=== PATIENT | female | born 1945 | race Caucasian/White ===

== ENCOUNTER 2016-09-02 21:27 | Emergency (ER) | payer MEDICARE, OTHER ==
[2016-09-02 21:34] VITALS: TEMP 96.8
--- NOTE | 2016-09-02 21:46 | ED ---
General Adult HPI - General Chief complaint: Chest Pain Stated complaint: SOB Time Seen by Provider: 09/02/16 21:35 Source: patient, RN notes reviewed, old records reviewed Mode of arrival: wheelchair Limitations: no limitations - History of Present Illness Initial comments: This is a 70-year-old female ER for evaluation. This patient presents today for evaluation of anxiety. Patient's been going through a lot of grief lately related to loss family loss. She does have history of heart disease. She became nauseous tonight will not was unable he didn't, headache left-sided pain pain rating to jaw and back. Patient has history of similar pain before with negative stress test negative cardiac testing. As the patient's pain is improved potential very anxious and nauseous - Related Data Allergies Allergy/AdvReac Type Severity Reaction Status Date / Time acetaminophen [From Vicodin] Allergy Unknown Verified 09/02/16 21:35 codeine Allergy Unknown Verified 09/02/16 21:35 hydrocodone [From Vicodin] Allergy Unknown Verified 09/02/16 21:35 iodine Allergy Unknown Verified 09/02/16 21:35 Review of Systems ROS Statement: Those systems with pertinent positive or pertinent negative responses have been documented in the HPI. ROS Other: All systems not noted in ROS Statement are negative. Past Medical History Past Medical History: Diabetes Mellitus, Hypertension History of Any Multi-Drug Resistant Organisms: None Reported Past Surgical History: Cholecystectomy, Hysterectomy, Orthopedic Surgery Additional Past Surgical History / Comment(s): eys- cataracts Past Psychological History: Anxiety Smoking Status: Never smoker Past Alcohol Use History: None Reported Past Drug Use History: None Reported General Exam Limitations: no limitations General appearance: alert, in no apparent distress, anxious Head exam: Present: atraumatic, normocephalic, normal inspection Eye exam: Present: normal appearance, PERRL, EOMI. Absent: scleral icterus, conjunctival injection, periorbital swelling ENT exam: Present: normal exam, mucous membranes moist Neck exam: Present: normal inspection. Absent: tenderness, meningismus, lymphadenopathy Respiratory exam: Present: normal lung sounds bilaterally. Absent: respiratory distress, wheezes, rales, rhonchi, stridor Cardiovascular Exam: Present: regular rate, normal rhythm, normal heart sounds. Absent: systolic murmur, diastolic murmur, rubs, gallop, clicks GI/Abdominal exam: Present: soft, normal bowel sounds. Absent: distended, tenderness, guarding, rebound, rigid Extremities exam: Present: normal inspection, full ROM, normal capillary refill. Absent: tenderness, pedal edema, joint swelling, calf tenderness Back exam: Present: normal inspection Neurological exam: Present: alert, oriented X3, CN II-XII intact Psychiatric exam: Present: normal affect, normal mood Skin exam: Present: warm, dry, intact, normal color. Absent: rash Course Vital Signs 09/02/16 21:29 Temperature 96.8 F L Pulse Rate 88 Respiratory 18 Rate Blood Pressure 199/88 O2 Sat by Pulse 97 Oximetry - Reevaluation(s) Reevaluation #1: 09/02/16 22:45 Patient's symptoms improved with anxiolysis Medical Decision Making - Medical Decision Making 70 female here for evaluation of anxiety and grief reaction. Patient's troponin and EKG are negative. Symptoms are improving patient can be discharged - Radiology Data Radiology results: report reviewed (Chest x-ray negative for acute disease), image reviewed Disposition Clinical Impression: Grief reaction Disposition: HOME SELF-CARE Condition: Good Instructions: Chest Pain (ED), Grief and Loss (ED) Referrals: Misael Brown MD [Primary Care Provider] - 1-2 days
[2016-09-02] MEDS ORDERED: SODIUM CHLORIDE 0.9% 500 ML IV STA (22:13)
[2016-09-02] MEDS ORDERED: MORPHINE SULFATE 4 MG/ML SYRINGE IV STA (22:13)
[2016-09-02] MEDS ORDERED: SODIUM CHLORIDE 0.9% 1,000 ML IV STA (22:13)
[2016-09-02] MEDS ORDERED: ONDANSETRON 4 MG/2 ML VIAL IVP STA (22:13)
[2016-09-02] MEDS ORDERED: PANTOPRAZOLE 40 MG/10 ML VIAL IVP STA (22:14)
[2016-09-02 23:08] LABS: Basophils # (A) 0.1 k/uL (0-0.2); Basophils % (A) 1 %; CH 30.3; CHCM 35.4; Eosinophils # (A) 0.1 k/uL (0-0.7); Eosinophils % (A) 2 %; HCT 38.9 % (34.0-46.0); HDW 2.96; HGB 13.5 gm/dL (11.4-16.0); Luc % (Auto) 2; Lymphocytes # (A) 1.2 k/uL (1.0-4.8); Lymphocytes % (A) 19 %; MCH 29.7 pg (25.0-35.0); MCHC 34.6 g/dL (31.0-37.0); MCV 85.9 fL (80.0-100.0); Mean Platelet Volume 7.4; Monocytes # (A) 0.3 k/uL (0-1.0); Monocytes % (A) 5 %; Neutrophils # (A) 4.5 k/uL (1.3-7.7); Neutrophils % (A) 71 %; RBC 4.53 m/uL (3.80-5.40); RDW 13.5 % (11.5-15.5); WBC 6.3 k/uL (3.8-10.6); WBC (Perox) 6.45
--- NOTE | 2016-09-02 23:10 | XR ---
EXAMINATION TYPE: XR chest 2V DATE OF EXAM: 09/02/2016 11:05 PM COMPARISON: NONE HISTORY: Chest pressure and weakness TECHNIQUE: Frontal and lateral views of the chest are obtained. FINDINGS: Heart and mediastinum are normal. Lungs are clear. Diaphragm is normal. Bony thorax is int act. There is no sign of pleural effusion. There are chest leads. IMPRESSION: No active cardiopulmonary disease.
[2016-09-02 23:16] LABS: ALT 37 U/L (9-52); AST 23 U/L (14-36); Alkaline Phosphatase 98 U/L (38-126); Anion Gap 11 mmol/L; Blood Urea Nitrogen 16 mg/dL (7-17); Calcium 9.4 mg/dL (8.4-10.2); Carbon Dioxide 26 mmol/L (22-30); Chloride 104 mmol/L (98-107); Glucose 211 mg/dL (74-99); Magnesium 2.1 mg/dL (1.6-2.3); Non-African American GFR(MDRD) >60 (>60 ml/min/1.73 sqM); Phosphorous 3.1 mg/dL (2.5-4.5); Sodium 141 mmol/L (137-145); Total Bilirubin 0.5 mg/dL (0.2-1.3)
[2016-09-02 23:22] LABS: Partial Thromboplastin Time 24.5 sec (22.0-30.0); Prothrombin Time 9.8 sec (9.0-12.0)
[2016-09-02 23:31] LABS: Creatine Kinase 75 U/L (30-135)
[2016-09-02 23:44] LABS: Creatine Kinase MB 1.4 ng/mL (0.0-2.4); Troponin I <0.012 ng/mL (0.000-0.034)
[2016-09-03 00:28] VITALS: BP 158/78; PULSE 77; RESP 16
== END 2016-09-03 00:28 | disposition home or self-care (01) ==
LOC: EC 21:27
DX: F43.22 Adjustment disorder with anxiety (principal); Z88.5 Allergy status to narcotic agent; Z88.8 Allergy status to other drugs, medicaments and biological substances; Z91.048 Other nonmedicinal substance allergy status
CPT/HCPCS: 99285 ×2; 96374 ×2; 96375 ×3; 96361 ×3; 36415; 80053; 82550; 82553; 83690; 83735; 84100; 84484; 85025; 85610; 85730; 71020; J2270; J2405; C9113

== ENCOUNTER → 2016-09-26 | Outpatient (CLI) | payer MEDICARE, OTHER ==
[2016-09-26 09:45] LABS: CH 30.3; CHCM 33.8; HCT 39.9 % (34.0-46.0); HDW 2.83; HGB 13.7 gm/dL (11.4-16.0); MCHC 34.4 g/dL (31.0-37.0); MCV 89.9 fL (80.0-100.0); Mean Platelet Volume 8.1; RBC 4.44 m/uL (3.80-5.40); RDW 13.6 % (11.5-15.5); WBC 6.5 k/uL (3.8-10.6)
[2016-09-26 10:13] LABS: Anion Gap 11 mmol/L; Blood Urea Nitrogen 15 mg/dL (7-17); Carbon Dioxide 30 mmol/L (22-30); Chloride 99 mmol/L (98-107); Non-African American GFR(MDRD) >60 (>60 ml/min/1.73 sqM); Potassium 4.8 mmol/L (3.5-5.1); Sodium 140 mmol/L (137-145)
== END | disposition home or self-care (01) ==
LOC: LABPAT 09:24
PROVIDERS: ATTEND Internal Medicine Interventional Cardiology
DX: Z01.812 Encounter for preprocedural laboratory examination (principal); I25.10 Atherosclerotic heart disease of native coronary artery without angina pectoris
CPT/HCPCS: 80051; 82565; 84520; 85027

== ENCOUNTER 2016-10-04 06:11 | Day surgery (SDC) | payer MEDICARE, OTHER ==
[2016-10-03 12:28] VITALS: BMI 36.0
[~2016-10-04 06:11] MED LIST: ALPRAZolam 0.25 MG TAB PO PRN; ALPRAZolam 0.5 MG TAB PO PRN; ASPIRIN 325 MG TAB PO STA; ATORVASTATIN 80 MG TAB PO STA; NITROGLYCERIN SL TABS 0.4 MG TAB SUBLINGUAL PRN; SODIUM CHLORIDE 0.9% 1,000 ML in EMPTY BAG 1 BAG IV ONE
[2016-10-04 06:50] VITALS: RESP 18
[2016-10-04 06:59] LABS: Glucose,Whole Blood 338 mg/dL (75-99)
[2016-10-04] MEDS ORDERED: INSULIN LISPRO (humaLOG) 300 UNIT/3 ML VIAL SQ SCH (07:30)
[2016-10-04] MEDS ORDERED: diphenhydrAMINE 50 MG/ML 1 ML VIAL IVP ONE (07:49)
[2016-10-04] MEDS: MIDAZOLAM 2 MG/2 ML VIAL IVP ONE ×2 (07:49→08:27)
[2016-10-04] MEDS ORDERED: LIDOCAINE 2% INJ 20 MG/ML SQ ONE (08:28)
[2016-10-04] MEDS ORDERED: VERAPAMIL SYRINGE (5 MG/10 ML) INTRAARTER ONE ×2 (08:32→08:40)
[2016-10-04] MEDS ORDERED: HYDROmorphone 2 MG/ML 1 ML SYRINGE IVP ONE (08:35)
[2016-10-04] MEDS ORDERED: HEPARIN SODIUM 1,000 UNIT/ML VIAL IV ONE (08:35)
[2016-10-04] MEDS ORDERED: ONDANSETRON 4 MG/2 ML VIAL IVP ONE (08:40)
[2016-10-04] MEDS ORDERED: IOHEXOL 350 MG/ML 100 ML BOTTLE INJ ONE (08:44)
[2016-10-04] MEDS ORDERED: RX INFO: IV CONTRAST WAS GIVEN 1 EACH MISC MISCELLANE PRN (08:47)
[2016-10-04 08:57] LABS: Glucose,Whole Blood 289 mg/dL (75-99)
[2016-10-04] MEDS ORDERED: SODIUM CHLORIDE 0.9% 1,000 ML IV SCH (09:00)
--- NOTE | 2016-10-04 09:49 | CC ---
DATE OF SERVICE: 10/04/2016 PERFORMING PHYSICIAN: Liz London, Dental Scheduling Coordinator. PROCEDURE PERFORMED: Selective right and left coronary angiogram. INDICATION: This is a pleasant 70-year-old female patient who continues to have intermittent episodes of chest discomfort in spite of maximized medical treatment. APPROACH: Right radial artery. COMPLICATIONS: None. LEVEL OF SEDATION: Moderate with a length of sedation of about 15 minutes. PROCEDURE DESCRIPTION: After obtaining an informed consent, the patient was brought to the Cardiac Animal Husbandry Technician. The right radial artery was cannulated using micropuncture technique. The micropuncture wire passed easily. Then I placed 6 Jordanian sheath in the right radial artery. Subsequently, I did give the patient 5000 units of heparin IV and 2 mg of Verapamil IA. Subsequently, I did selective right and left coronary angiogram using JR4 and JL 3.5 catheters. The procedure was completed without any complication. SELECTIVE CORONARY ANGIOGRAM: 1. The right coronary artery is a large-caliber vessel, it is a dominant vessel, and it is angiographically normal. In the midportion, it gives rise into a small acute marginal branch and distally bifurcates into PDA and PLV branches and both are angiographically normal. 2. The left main is angiographically normal. It bifurcates into the left circumflex and left anterior descending artery. 3. The left circumflex is a large-caliber vessel and it is a nondominant vessel. The proximal left circumflex is normal and gives rises into the first OM branch, which is a medium caliber vessel, seems to be angiographically normal. The mid left circumflex is normal and gives rise into second OM branch, which is a large-caliber vessel, seems to be angiographically normally. The left circumflex continues after that as a small to medium caliber vessel in the AV groove. 4. The left anterior descending artery. The proximal left anterior descending artery is normal and gives rises into the first diagonal branch, which appeared to be angiographically normal. The mid LAD is normal as well and gives rise into the second diagonal branch, which seems to be angiographically normal with the LAD distally becomes tortuous, but normal angiographically. CONCLUSION: 1. Normal coronary angiogram. 2. Dominant right coronary system. POSTPROCEDURE MANAGEMENT: 1. Maximize medical treatment. 2. Follow up with the patient.
--- NOTE | 2016-10-04 09:55 | LTR ---
October 04, 2016 RE: Mauro Rika Zoe Dear Misael; Ms. Rika Wade underwent a heart catheterization which showed normal coronary angiogram. Thank you for allowing me to participate in her care and please do not hesitate to call if you have any question or concerns. Sincerely, BARI OSUNA MD
[2016-10-04 12:24] LABS: Glucose,Whole Blood 450 mg/dL (75-99)
[2016-10-04] MEDS ORDERED: INSULIN LISPRO (humaLOG) 300 UNIT/3 ML VIAL SQ ONE ×5 (12:34→17:45)
[2016-10-04] MEDS ORDERED: INSULIN DETEMIR 100 UNIT/ML 10 ML VIAL SQ SCH (13:00)
[2016-10-04] MEDS ORDERED: SODIUM CHLORIDE 0.9% 1,000 ML IV ONE (13:00)
[2016-10-04 15:28] LABS: Glucose,Whole Blood 484 mg/dL (75-99)
[2016-10-04 16:20] LABS: Glucose,Whole Blood 402 mg/dL (75-99)
[2016-10-04 16:51] LABS: Glucose,Whole Blood 316 mg/dL (75-99)
[2016-10-04 17:04] VITALS: BP 166/72; PULSE 86; TEMP 98
== END 2016-10-04 17:55 | disposition home or self-care (01) ==
LOC: CATHCVL 06:11
PROVIDERS: ATTEND Internal Medicine Interventional Cardiology
DX: R07.89 Other chest pain (principal); I10 Essential (primary) hypertension; E78.5 Hyperlipidemia, unspecified; E66.3 Overweight; Z68.35 Body mass index [BMI] 35.0-35.9, adult; E11.9 Type 2 diabetes mellitus without complications; Z79.4 Long term (current) use of insulin; I47.1 Supraventricular tachycardia; Z79.82 Long term (current) use of aspirin; Z79.899 Other long term (current) drug therapy; Z88.6 Allergy status to analgesic agent; Z88.5 Allergy status to narcotic agent; Z91.09 Other allergy status, other than to drugs and biological substances
CPT/HCPCS: 93454; 99152; 99153 ×3; C1894; J2001; J2250; J1170; J1200; Q9967; J2405; J1644

== ENCOUNTER 2016-10-06 16:06 | Emergency (ER) | payer MEDICARE, OTHER ==
[2016-10-06] MEDS ORDERED: DIAZEPAM 5 MG TAB PO STA (17:04)
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
--- NOTE | 2016-10-06 17:51 | XR ---
EXAMINATION TYPE: XR knee complete LT DATE OF EXAM: 10/06/2016 5:47 PM CLINICAL HISTORY: pain TECHNIQUE: Three views of the left knee are obtained. COMPARISON: None. FINDINGS: There is no acute fracture/dislocation. The tri-compartment joint spaces appear mildly na rrowed. The overlying soft tissue appears unremarkable. IMPRESSION: There is no acute fracture or dislocation ICD 10 NO FRACTURE, INITIAL EVALUATION
[2016-10-06 18:19] VITALS: BP 153/72; PULSE 80; RESP 18; TEMP 99.2
== END 2016-10-06 18:18 | disposition home or self-care (01) ==
LOC: EC 16:06
DX: S80.02XA Contusion of left knee, initial encounter (principal); V49.49XA Driver injured in collision with other motor vehicles in traffic accident, initial encounter; F41.9 Anxiety disorder, unspecified; R51 Headache; I10 Essential (primary) hypertension; E11.9 Type 2 diabetes mellitus without complications; Z79.4 Long term (current) use of insulin; Z79.899 Other long term (current) drug therapy; Z79.82 Long term (current) use of aspirin; Z91.013 Allergy to seafood; Z91.041 Radiographic dye allergy status; Z88.5 Allergy status to narcotic agent
CPT/HCPCS: 70450; 99284

== ENCOUNTER → 2017-01-04 | Outpatient (CLI) | payer MEDICARE, OTHER ==
[2017-01-04 11:07] LABS: ALT 39 U/L (9-52); AST 33 U/L (14-36); Alkaline Phosphatase 61 U/L (38-126); Anion Gap 8 mmol/L; Blood Urea Nitrogen 24 mg/dL (7-17); Calcium 9.6 mg/dL (8.4-10.2); Carbon Dioxide 29 mmol/L (22-30); Chloride 103 mmol/L (98-107); Cholesterol 134 mg/dL (<200); Glucose 126 mg/dL (74-99); HDL Cholesterol 62 mg/dL (40-60); Non-African American GFR(MDRD) >60 (>60 ml/min/1.73 sqM); Potassium 4.7 mmol/L (3.5-5.1); Sodium 140 mmol/L (137-145); Total Bilirubin 0.8 mg/dL (0.2-1.3); Total Protein 7.1 g/dL (6.3-8.2); Triglycerides 88 mg/dL (<150)
== END ==
LOC: LABWHC1 09:53
PROVIDERS: ATTEND Internal Medicine Endocrinology, Diabetes & Metabolism
DX: E11.65 Type 2 diabetes mellitus with hyperglycemia (principal)
CPT/HCPCS: 36415; 80053; 80061; 82043; 83036

== ENCOUNTER 2017-08-28 20:36 | Inpatient (IN) | payer MEDICARE, OTHER ==
--- NOTE | 2017-08-28 21:10 | ED ---
Chest Pain HPI - General Chief Complaint: Chest Pain Stated Complaint: CHEST PAIN Time Seen by Provider: 08/28/17 20:37 Source: patient, EMS Mode of arrival: EMS Limitations: no limitations - History of Present Illness MD Complaint: chest pain Onset/Timin -: minutes(s) Onset: during rest Pain Location: left chest Pain Radiation: LUE Severity: moderate Quality: heaviness Consistency: constant, now resolved Improves With: nothing Worsens With: nothing Anginal Symptoms: diaphoresis Treatments Prior to Arrival: aspirin, nitroglycerin, oxygen - Related Data Home Medications Medication Instructions Recorded Confirmed Aspirin 81 mg PO DAILY 10/03/16 08/28/17 Cholecalciferol [Vitamin D3] 5,000 unit PO DAILY 10/03/16 08/28/17 Furosemide [Lasix] 40 mg PO DAILY 10/03/16 08/28/17 Lisinopril [Zestril] 20 mg PO BID 10/03/16 08/28/17 Metoprolol Tartrate [Lopressor] 25 mg PO BID 10/03/16 08/28/17 Omeprazole [PriLOSEC] 20 mg PO AC-BID 10/03/16 08/28/17 Simvastatin [Zocor] 20 mg PO HS 10/03/16 08/28/17 Glimepiride [Amaryl] 2 mg PO DAILY 08/28/17 08/28/17 Ibuprofen [Motrin] 800 mg PO TID PRN 08/28/17 08/28/17 Latanoprost [Xalatan 0.005%] 1 drop BOTH EYES HS 08/28/17 08/28/17 Pioglitazone [Actos] 30 mg PO DAILY 08/28/17 08/28/17 amLODIPine [Norvasc] 5 mg PO DAILY 08/28/17 08/28/17 metFORMIN HCL 1,000 mg PO BID 08/28/17 08/28/17 Allergies Allergy/AdvReac Type Severity Reaction Status Date / Time codeine Allergy Nausea & Verified 08/28/17 21:09 Vomiting hydrocodone [From Vicodin] Allergy nausea,inso Verified 08/28/17 21:09 mnia Iodinated Contrast- Oral and Allergy Dyspnea,hiv Verified 08/28/17 21:09 IV Dye es [Iodinated Contrast Media - Oral and] shellfish derived [Shellfish] Allergy Rash/Hives Verified 08/28/17 21:09 Review of Systems ROS Statement: Those systems with pertinent positive or pertinent negative responses have been documented in the HPI. ROS Other: All systems not noted in ROS Statement are negative. Constitutional: Denies: fever, chills, weakness Respiratory: Reports: dyspnea. Denies: cough, wheezes, hemoptysis Cardiovascular: Reports: chest pain, palpitations. Denies: dyspnea on exertion , orthopnea, edema, syncope Gastrointestinal: Denies: abdominal pain, nausea, vomiting Genitourinary: Denies: dysuria, hematuria Musculoskeletal: Reports: back pain (chronic), arthralgia (chronic left knee pain) Skin: Denies: rash Neurological: Denies: headache, weakness, numbness Psychiatric: Reports: anxiety Hematological/Lymphatic: Denies: easy bleeding EKG Findings - EKG Comments: EKG Findings:: comparison with EKG from 09/02/2016 is unchanged. - EKG Results: EKG: interpreted by ERMD, sinus rhythm, normal axis, normal ST/T EKG shows: tachycardia (rate 106 bpm) - CA, Pacemaker, Normal: Myocardial infarction: inferior CA (old age indeterminate) (there are Q waves in leads 1 and aVL suggestive of possible old inferior infarct.) Past Medical History Past Medical History: Diabetes Mellitus, Hypertension History of Any Multi-Drug Resistant Organisms: None Reported Past Surgical History: Cholecystectomy, Hysterectomy, Orthopedic Surgery Additional Past Surgical History / Comment(s): eys- cataracts Past Psychological History: Anxiety Smoking Status: Never smoker Past Alcohol Use History: None Reported Past Drug Use History: None Reported General Exam Limitations: no limitations General appearance: alert, in no apparent distress, obese Head exam: Present: atraumatic, normocephalic Eye exam: Present: normal appearance. Absent: scleral icterus, conjunctival injection ENT exam: Present: normal oropharynx Neck exam: Present: normal inspection Respiratory exam: Present: normal lung sounds bilaterally. Absent: respiratory distress, wheezes, rales, rhonchi, stridor, chest wall tenderness Cardiovascular Exam: Present: regular rate (rate is 96 at my exam), normal heart sounds. Absent: normal rhythm, systolic murmur, diastolic murmur, rubs, gallop GI/Abdominal exam: Present: soft. Absent: distended, tenderness, guarding, rebound, mass, pulsatile mass, hernia Extremities exam: Present: normal inspection, normal capillary refill. Absent: pedal edema, calf tenderness Back exam: Present: normal inspection. Absent: CVA tenderness (R), CVA tenderness (L) Neurological exam: Present: alert Psychiatric exam: Present: normal affect Skin exam: Present: warm, dry, intact, normal color. Absent: rash Course Vital Signs 08/28/17 20:44 Temperature 97.9 F Pulse Rate 107 H Respiratory 16 Rate Blood Pressure 165/70 O2 Sat by Pulse 99 Oximetry Disposition Clinical Impression: Chest pain, Hypomagnesemia Disposition: ADMITTED IP TO THIS HOSP Condition: Good Instructions: Chest Pain (ED) Referrals: Misael Brown MD [Primary Care Provider] - 1-2 days
[2017-08-28 21:43] LABS: Basophils # (A) 0.1 k/uL (0-0.2); Basophils % (A) 1 %; Eosinophils # (A) 0.1 k/uL (0-0.7); Eosinophils % (A) 2 %; HCT 34.3 % (34.0-46.0); HGB 11.6 gm/dL (11.4-16.0); Lymphocytes # (A) 1.5 k/uL (1.0-4.8); Lymphocytes % (A) 28 %; MCH 30.8 pg (25.0-35.0); MCV 90.6 fL (80.0-100.0); Monocytes # (A) 0.3 k/uL (0-1.0); Monocytes % (A) 6 %; Neutrophils # (A) 3.3 k/uL (1.3-7.7); Neutrophils % (A) 62 %; Platelet Count 203 k/uL (150-450); RBC 3.78 m/uL (3.80-5.40); RDW 14.7 % (11.5-15.5); WBC 5.4 k/uL (3.8-10.6)
[2017-08-28 21:51] LABS: Partial Thromboplastin Time 23.8 sec (22.0-30.0); Prothrombin Time 10.2 sec (9.0-12.0)
[2017-08-28 21:52] LABS: ALT 27 U/L (9-52); AST 18 U/L (14-36); Albumin 3.8 g/dL (3.5-5.0); Alkaline Phosphatase 59 U/L (38-126); Amylase 42 U/L (30-110); Anion Gap 11 mmol/L; Blood Urea Nitrogen 19 mg/dL (7-17); Calcium 9.4 mg/dL (8.4-10.2); Carbon Dioxide 26 mmol/L (22-30); Chloride 101 mmol/L (98-107); Glucose 219 mg/dL (74-99); Lipase 66 U/L (23-300); Potassium 3.7 mmol/L (3.5-5.1); Sodium 138 mmol/L (137-145); Total Bilirubin 0.3 mg/dL (0.2-1.3); Total Protein 6.2 g/dL (6.3-8.2)
[2017-08-28 21:56] LABS: Magnesium 0.9 mg/dL (1.6-2.3)
--- NOTE | 2017-08-28 21:57 | XR ---
EXAMINATION: XR chest 1V portable DATE AND TIME: 08/28/2017 9:53 PM ORDERING PROVIDER: Ike Carlisle MD CLINICAL INDICATION: chest pain TECHNIQUE: AP upright portable COMPARISON: None. DESCRIPTION: The lungs are clear. The pleural spaces are negative. The cardiac silhouette is not enla rged. The mediastinal and pleural silhouettes are unremarkable. The skeletal structures are intact without focal findings. The soft tissues are unremarkable. IMPRESSION: NO ACUTE PROCESS.
[2017-08-28 22:03] LABS: Creatine Kinase 64 U/L (30-135)
[2017-08-28 22:16] LABS: Creatine Kinase MB 0.9 ng/mL (0.0-2.4); Troponin I <0.012 ng/mL (0.000-0.034)
[2017-08-28] MEDS: MAGNESIUM SULFATE-D5W PMX 1 GM in DEXTROSE/WATER 1 100ML.BAG IVPB SCH ×2 (22:33→23:37)
[2017-08-28] MEDS ORDERED: NITROGLYCERIN SL TABS 0.4 MG TAB SUBLINGUAL PRN (22:49)
[2017-08-28] MEDS ORDERED: IBUPROFEN 800 MG TAB PO PRN (22:52)
[2017-08-29 02:26] VITALS: BMI 35.8
[2017-08-29 04:01] LABS: Magnesium 1.7 mg/dL (1.6-2.3)
[2017-08-29 04:13] LABS: Creatine Kinase 62 U/L (30-135)
[2017-08-29 04:26] LABS: Creatine Kinase MB 0.7 ng/mL (0.0-2.4); Troponin I <0.012 ng/mL (0.000-0.034)
[2017-08-29 06:29] LABS: Glucose,Whole Blood 123 mg/dL (75-99)
[2017-08-29] MEDS: metFORMIN 500 MG TAB PO SCH ×2 (06:31→17:21)
[2017-08-29] MEDS: PANTOPRAZOLE 40 MG TABLET PO SCH ×2 (06:31→15:44)
[2017-08-29 08:24] VITALS: RESP 16
[2017-08-29] MEDS: ASPIRIN 325 MG TAB PO SCH (08:27)
[2017-08-29] MEDS: MAGNESIUM OXIDE 400 MG TAB PO SCH ×2 (08:27→20:35)
[2017-08-29] MEDS: GLIMEPIRIDE 2 MG TAB PO SCH ×2 (08:27→08:30)
--- NOTE | 2017-08-29 08:31 | P.CRDCN ---
History of Present Illness Consult date: 08/29/17 Requesting physician: Romaine Almanzar Consult reason: chest pain Chief complaint: Chest PAin and palpitations History of present illness: This is a 71-year-old female with history of diabetes, hypertension, hyperlipidemia, family history of coronary artery disease, history of SVT, most recently had a cardiac catheterization performed in September of last year which revealed normal coronary arteries. She follows with Dr. Benavides in the office. Patient presents to the hospital with symptoms of chest discomfort with associated palpitations, and elevated blood sugars. She also states that she checked her blood pressure at home which was noted to be quite elevated at that time. According to the patient, she is under a considerable amount of stress at home, and has been feeling quite anxious. At the time of my examination this morning she denies any chest discomfort, she just states that she feels cold and feels very anxious. EKG on arrival here shows a sinus tachycardia with Q waves noted in the lateral leads. Chest x-ray did not reveal any acute process. Blood pressure on arrival here 164/70, heart rate 110, 99% on room air. Blood pressure this morning 166/70, heart rate 108-110, 98% on room air. Laboratory data was reviewed, CBC is normal, sodium 138, potassium 3.7, BUN 19, creatinine 1.02. Magnesium level on admission 0.9, 1.7 this morning. Troponins 2 are negative. Past Medical History Past Medical History: Diabetes Mellitus, Hypertension, Myocardial Infarction (VT ) Last Myocardial Infarction Date:: 1986 History of Any Multi-Drug Resistant Organisms: None Reported Past Surgical History: Cholecystectomy, Heart Catheterization, Hysterectomy, Orthopedic Surgery Additional Past Surgical History / Comment(s): eys- cataracts Past Psychological History: Anxiety Smoking Status: Never smoker Past Alcohol Use History: None Reported Past Drug Use History: None Reported - Past Family History Father Family Medical History: CVA/TIA, Diabetes Mellitus Mother Family Medical History: Congestive Heart Failure (CHF), Diabetes Mellitus Medications and Allergies Home Medications Medication Instructions Recorded Confirmed Type Aspirin 81 mg PO DAILY 10/03/16 08/28/17 History Cholecalciferol [Vitamin D3] 5,000 unit PO DAILY 10/03/16 08/28/17 History Furosemide [Lasix] 40 mg PO DAILY 10/03/16 08/28/17 History Lisinopril [Zestril] 20 mg PO BID 10/03/16 08/28/17 History Metoprolol Tartrate [Lopressor] 25 mg PO BID 10/03/16 08/28/17 History Omeprazole [PriLOSEC] 20 mg PO AC-BID 10/03/16 08/28/17 History Simvastatin [Zocor] 20 mg PO HS 10/03/16 08/28/17 History Glimepiride [Amaryl] 1 mg PO DAILY 08/28/17 08/29/17 History Ibuprofen [Motrin] 800 mg PO TID PRN 08/28/17 08/28/17 History Latanoprost [Xalatan 0.005%] 1 drop BOTH EYES HS 08/28/17 08/28/17 History Pioglitazone [Actos] 30 mg PO DAILY 08/28/17 08/28/17 History amLODIPine [Norvasc] 5 mg PO DAILY 08/28/17 08/28/17 History metFORMIN HCL 1,000 mg PO BID 08/28/17 08/28/17 History Allergies Allergy/AdvReac Type Severity Reaction Status Date / Time codeine Allergy Nausea & Verified 08/28/17 21:09 Vomiting hydrocodone [From Vicodin] Allergy nausea,inso Verified 08/28/17 21:09 mnia Iodinated Contrast- Oral and Allergy Dyspnea,hiv Verified 08/28/17 21:09 IV Dye es [Iodinated Contrast Media - Oral and] shellfish derived [Shellfish] Allergy Rash/Hives Verified 08/28/17 21:09 Physical Exam Vitals: Vital Signs Temp Pulse Pulse Resp BP BP Pulse Ox 08/29/17 03:52 83 17 147/65 96 08/29/17 02:01 97.5 F L 110 H 17 161/73 98 08/28/17 23:55 98.1 F 96 16 145/66 96 08/28/17 22:50 98 18 142/66 97 08/28/17 21:50 100 16 146/67 98 08/28/17 20:44 97.9 F 107 H 16 165/70 99 Intake and Output 08/28/17 08/29/17 08/29/17 22:59 06:59 14:59 Intake Total 680 200 Balance 680 200 Intake: Intake, IV Titration 200 Amount Magnesium Sulfate-D5w Pmx 200 1 gm In Dextrose/Water 1 100ml.bag @ 100 mls/hr IVPB Q1H [facility] Rx#: [id number] Oral 480 200 Other: Voiding Method Toilet # Voids 2 Weight 97.069 kg 94.6 kg PHYSICAL EXAMINATION: HEENT: Head is atraumatic, normocephalic. Pupils equal, round. Neck is supple. There is no elevated jugular venous pressure. HEART EXAMINATION: Heart S1, S2 tachycardiac . No murmur or gallop heard. CHEST EXAMINATION: Lungs are clear to auscultation and precussion. No chest wall tenderness is noted on palpation or with deep breathing. ABDOMEN: Soft, nontender. Bowel sounds are heard. No organomegaly noted. EXTREMITIES: 2+ peripheral pulses with no evidence of peripheral edema and no calf tenderness noted. NEUROLOGIC patient is awake, alert and oriented -3. . Results 08/28/17 20:50 08/28/17 20:50 Cardiac Enzymes 08/28/17 08/28/17 08/29/17 Range/Units 20:50 20:50 03:08 AST 18 (14-36) U/L CK-MB (CK-2) 0.9 0.7 (0.0-2.4) ng/mL Troponin I <0.012 <0.012 (0.000-0.034) ng/mL Coagulation 08/28/17 Range/Units 20:50 PT 10.2 (9.0-12.0) sec APTT 23.8 (22.0-30.0) sec Lipids 08/29/17 Range/Units 03:08 Triglycerides 109 (<150) mg/dL Cholesterol 114 (<200) mg/dL HDL Cholesterol 52 (40-60) mg/dL CBC 08/28/17 Range/Units 20:50 WBC 5.4 (3.8-10.6) k/uL RBC 3.78 L (3.80-5.40) m/uL Hgb 11.6 (11.4-16.0) gm/dL Hct 34.3 (34.0-46.0) % Plt Count 203 (150-450) k/uL Comprehensive Metabolic Panel 08/28/17 Range/Units 20:50 Sodium 138 (137-145) mmol/L Potassium 3.7 (3.5-5.1) mmol/L Chloride 101 (98-107) mmol/L Carbon Dioxide 26 (22-30) mmol/L BUN 19 H (7-17) mg/dL Creatinine 1.02 (0.52-1.04) mg/dL Glucose 219 H (74-99) mg/dL Calcium 9.4 (8.4-10.2) mg/dL AST 18 (14-36) U/L ALT 27 (9-52) U/L Alkaline Phosphatase 59 (38-126) U/L Total Protein 6.2 L (6.3-8.2) g/dL Albumin 3.8 (3.5-5.0) g/dL Current Medications Generic Name Dose Route Start Last Admin Trade Name Freq PRN Reason Stop Dose Admin Amlodipine Besylate 5 mg 08/29/17 09:00 Norvasc PO DAILY [facility] Aspirin 325 mg 08/29/17 09:00 Aspirin PO DAILY [facility] Atorvastatin Calcium 10 mg 08/29/17 21:00 Lipitor PO HS [facility] Cholecalciferol 5,000 unit 08/29/17 09:00 Vitamin D3 PO DAILY [facility] Furosemide 40 mg 08/29/17 09:00 Lasix PO DAILY [facility] Glimepiride 2 mg 08/29/17 09:00 Amaryl PO DAILY [facility] Ibuprofen 800 mg 08/28/17 22:52 Motrin PO TID PRN Pain Latanoprost 1 drops 08/29/17 21:00 Xalatan 0.005% BOTH EYES HS [facility] Lisinopril 20 mg 08/29/17 09:00 Zestril PO BID [facility] Magnesium Oxide 400 mg 08/29/17 09:00 Mag-Ox PO BID [facility] Metformin HCl 1,000 mg 08/29/17 07:30 08/29/17 06:31 Glucophage PO 1,000 mg AC-BID [facility] Administration Metoprolol Tartrate 25 mg 08/29/17 09:00 Lopressor PO BID [facility] Nitroglycerin 0.4 mg 08/28/17 22:49 Nitrostat SUBLINGUAL Q5M PRN Chest Pain Pantoprazole Sodium 40 mg 08/29/17 07:30 08/29/17 06:31 Protonix PO 40 mg AC-BID [facility] Administration Pioglitazone HCl 30 mg 08/29/17 09:00 Actos PO DAILY [facility] Intake and Output 08/28/17 08/29/17 08/29/17 22:59 06:59 14:59 Intake Total 680 200 Balance 680 200 Intake: Intake, IV Titration 200 Amount Magnesium Sulfate-D5w Pmx 200 1 gm In Dextrose/Water 1 100ml.bag @ 100 mls/hr IVPB Q1H [facility] Rx#: [id number] Oral 480 200 Other: Voiding Method Toilet # Voids 2 Weight 97.069 kg 94.6 kg 08/28/17 20:50 08/28/17 20:50 EKG Interpretations (text) EKG shows a sinus tachycardia with Q waves in the lateral leads. Assessment and Plan Plan: Assessment and plan #1 chest discomfort with associated palpitations, atypical for acute coronary syndrome. Troponins negative 2, EKG shows sinus tachycardia with lateral Q waves. Patient underwent a cardiac catheterization in September 2016 which revealed normal coronary arteries #2 hypertension #3 hyperlipidemia #4 family history of coronary artery disease #5 diabetes, blood glucose on admission 219 #6 history of SVT #7 hypomagnesemia, mag level I.7 this morning, 0.9 on admission. Plan We will order an echocardiogram with Doppler study, we will also request a TSH level and d-dimer. Patient's pain is very atypical in nature, recent cardiac catheterization revealed normal coronary arteries. Further recommendations will be based on these findings and the patient's clinical course. DNP note has been reviewed, I agree with a documented findings and plan of care. Patient was seen and examined.
[2017-08-29] MEDS: amLODIPine 5 MG TAB PO SCH (08:51)
[2017-08-29] MEDS: LISINOPRIL 20 MG TAB PO SCH ×2 (08:51→20:34)
[2017-08-29] MEDS: METOPROLOL TARTRATE 25 MG TAB PO SCH ×2 (08:51→20:35)
[2017-08-29] MEDS: FUROSEMIDE 40 MG TAB PO SCH (08:52)
[2017-08-29] MEDS: PIOGLITAZONE 30 MG TAB PO SCH (08:52)
[2017-08-29] MEDS ORDERED: ASPIRIN 81 MG PO SCH (09:00)
[2017-08-29 09:43] LABS: Creatine Kinase 54 U/L (30-135)
[2017-08-29 09:55] LABS: Creatine Kinase MB 0.7 ng/mL (0.0-2.4); Troponin I <0.012 ng/mL (0.000-0.034)
[2017-08-29] MEDS: ATORVASTATIN 40 MG TAB PO SCH (11:29)
[2017-08-29] MEDS: CHOLECALCIFEROL 1,000 UNIT TAB PO SCH (11:30)
[2017-08-29 11:33] LABS: Glucose,Whole Blood 185 mg/dL (75-99)
[2017-08-29] MEDS: INSULIN ASPART 100 UNIT/ML 1 ML 10 ML VIAL SQ SCH ×3 (11:56→21:05)
--- NOTE | 2017-08-29 12:05 | ECHOF ---
Referral Reason: MEASUREMENTS -------- HEIGHT: 162.6 cm WEIGHT: 94.3 kg BP: 166/70 IVSd: 1.2 cm (0.6 - 1.1) LVIDd: 3.8 cm (3.9 - 5.3) LVPWd: 1.1 cm (0.6 - 1.1) IVSs: 2.1 cm LVIDs: 1.5 cm LVPWs: 1.4 cm Ao Diam: 3.4 cm (2.0 - 3.7) AV Cusp: 1.7 cm (1.5 - 2.6) LA Diam: 3.3 cm (2.7 - 3.8) MV EXCURSION: 14.317 mm (> 18.000) MV EF SLOPE: 53 mm/s (70 - 150) EPSS: 0.9 cm MV E Nahum: 1.38 m/s MV DecT: 150 ms MV A Nahum: 0.36 m/s MV E/A Ratio: 3.87 RAP: 5.00 mmHg RVSP: 11.39 mmHg FINDINGS -------- Sinus rhythm. This was a technically good study. The left ventricular size is normal. There is borderline concentric left ventricular hypertrophy. Overall left ventricular systolic function is normal with, an EF between 55 - 60 %. The right ventricle is normal in size and function. The left atrium is normal in size. The right atrium is normal in size. Aortic valve is trileaflet and is mildly thickened. The mitral valve leaflets are mildly thickened. Mild mitral annular calcification present. Mild m itral regurgitation is present. Mild tricuspid regurgitation present. The right ventricular systolic pressure, as measured by Doppl er, is 11.39mmHg. Pulmonic valve appears structurally normal. The aortic root size is normal. Normal inferior vena cava with normal inspiratory collapse consistent with estimated right atrial pre ssure of 5 mmHg. The pericardium is normal. CONCLUSIONS -------- 1. Sinus rhythm. 2. This was a technically good study. 3. The left ventricular size is normal. 4. There is borderline concentric left ventricular hypertrophy. 5. Overall left ventricular systolic function is normal with, an EF between 55 - 60 %. 6. The right ventricle is normal in size and function. 7. The left atrium is normal in size. 8. The right atrium is normal in size. 9. Aortic valve is trileaflet and is mildly thickened. 10. The mitral valve leaflets are mildly thickened. 11. Mild mitral annular calcification present. 12. Mild mitral regurgitation is present. 13. Mild tricuspid regurgitation present. 14. The right ventricular systolic pressure, as measured by Doppler, is 11.39mmHg. 15. Pulmonic valve appears structurally normal. 16. The aortic root size is normal. 17. Normal inferior vena cava with normal inspiratory collapse consistent with estimated right atrial pressure of 5 mmHg. 18. The pericardium is normal. MACHINIST HELPER MARINE: Angeline Zhao RDCS
[2017-08-29 16:06] LABS: Hemoglobin A1C 7.4 % (4.0-6.0)
[2017-08-29 16:52] LABS: Glucose,Whole Blood 119 mg/dL (75-99)
[2017-08-29] MEDS ORDERED: ALPRAZolam 0.25 MG TAB PO PRN (17:29)
[2017-08-29] MEDS ORDERED: TEMAZEPAM 15 MG CAP PO PRN (17:29)
--- NOTE | 2017-08-29 20:26 | HP ---
HISTORY AND PHYSICAL CHIEF COMPLAINTS: Chest pain, palpitation. HISTORY OF PRESENT ILLNESS: This 71-year-old woman with a past medical history of multiple medical problems, diabetes, hypertension, myocardial infarction, cholecystectomy, history of cardiac cath, history of anxiety being followed by Dr. Brown in the outpatient setting, was complaining of chest pain which is in the epigastrium which is vague in character. The patient also reports significant social stressors recently. Otherwise the patient also has palpitation. Blood pressure is also found to be elevated. Patient also had a cardiac cath last September which showed normal coronaries. There is no history of fever, rigors or chills. No history of headache, loss of conscious or seizures at this time. PAST MEDICAL HISTORY: History of hypertension, diabetes, myocardial infarction, cholecystectomy, cardiac catheterization, anxiety. MEDICATIONS: Prior to admission include: 1. Amaryl 1 mg b.i.d. 2. Actos 30 mg p.o. daily. 3. Xalatan 0.05 one drop q.h.s. Motrin 800 mg t.i.d. p.r.n. 1. Metformin 1000 mg p.o. b.i.d. 2. Norvasc 5 mg daily. 3. Zocor 20 mg q.h.s. 4. Zestril 20 mg p.o. b.i.d. 5. Vitamin D3 5000 daily. 6. Prilosec 20 mg p.o. b.i.d. 7. Lopressor 25 mg p.o. b.i.d. 8. Lasix 40 mg p.o. 9. Aspirin 81 mg p.o. daily. ALLERGIES: CODEINE, HYDROCODONE, IODINATED CONTRAST. SHELLFISH. FAMILY HISTORY: History of CVA, TIA and diabetes in the family. SOCIAL HISTORY: No history of smoking. No history of alcohol. REVIEW OF SYSTEMS: ENT: No diminished vision or diminished hearing. Cardio system: As mentioned earlier. Respiratory: As mentioned earlier. GI: As mentioned earlier. no dysuria. Nervous system: No numbness, weakness. Allergy/Immunology: No asthma or hayfever. Musculoskeletal as mentioned earlier. HEMATOLOGY/ONCOLOGY: No history of anemia. Endocrine: History of diabetes. Constitutional: As mentioned earlier. Dermatology negative. Rheumatology: Negative. Psychiatric: As mentioned earlier. PHYSICAL EXAMINATION: Alert, oriented x3. Pulse 90. Blood pressure 130/76, respirations 16, temperature 97 degrees, pulse ox 98% on room air. HEENT: Conjunctivae normal. Neck: No jugular venous distention. Cardiovascular: S1, S2 muffled. Respiratory: Breath sounds diminished in the bases. No rhonchi. No crackles. ABDOMEN: Soft, nontender. No mass palpable. No hepatosplenomegaly. EXTREMITIES: No edema. No swelling. Central nervous system: Higher functions as mentioned earlier. Moves all four limbs. No focal deficits. Lymphatics: No lymph nodes palpable in the neck, axillae or groin. SKIN: No ulcer, rash or bleeding. LABS: CBC within normal limits. Glucose 119, magnesium is 0.9. ASSESSMENT: 1. Chest pain possible unstable angina possibly musculoskeletal. 2. Hypomagnesemia. 3. Social stressors. 4. Hypertension. 5. Diabetes type 2. 6. History of cardiac catheterization. Normal coronaries. 7. History of cholecystectomy. 8. History of anxiety. RECOMMENDATIONS AND DISCUSSION: Recommend to continue current medications, continue symptomatic treatment. Otherwise, at this time, I recommend symptomatic treatment. Otherwise, cardiology consultation. Repeat labs in the morning. Resume the home medications. Overall prognosis guarded because of multiple complex medical issues. Further recommendations to follow. A copy of dictation being forwarded to Dr. Brown who is the primary care physician. LAUREN / MAC: [id number] /
[2017-08-29] MEDS ORDERED: LATANOPROST 0.005% OPHTH DROPS 2.5 ML BTL BOTH EYES SCH (21:00)
[2017-08-29] MEDS ORDERED: ATORVASTATIN 10 MG TAB PO SCH (21:00)
[2017-08-29 21:06] LABS: Glucose,Whole Blood 124 mg/dL (75-99)
[2017-08-30 05:52] LABS: Glucose,Whole Blood 120 mg/dL (75-99)
[2017-08-30] MEDS: INSULIN ASPART 100 UNIT/ML 1 ML 10 ML VIAL SQ SCH ×2 (05:52→12:59)
[2017-08-30] MEDS: PANTOPRAZOLE 40 MG TABLET PO SCH (05:55)
[2017-08-30] MEDS: metFORMIN 500 MG TAB PO SCH (05:55)
[2017-08-30 06:14] LABS: Basophils % (A) 1 %; Eosinophils # (A) 0.1 k/uL (0-0.7); Eosinophils % (A) 3 %; HCT 33.5 % (34.0-46.0); Lymphocytes # (A) 1.3 k/uL (1.0-4.8); Lymphocytes % (A) 31 %; MCH 30.1 pg (25.0-35.0); MCHC 32.8 g/dL (31.0-37.0); Mean Platelet Volume 7.8; Monocytes # (A) 0.3 k/uL (0-1.0); Monocytes % (A) 7 %; Neutrophils # (A) 2.4 k/uL (1.3-7.7); Neutrophils % (A) 57 %; Platelet Count 195 k/uL (150-450); RBC 3.65 m/uL (3.80-5.40); RDW 14.3 % (11.5-15.5); WBC 4.2 k/uL (3.8-10.6)
[2017-08-30 06:33] LABS: Calcium 9.3 mg/dL (8.4-10.2); Potassium 4.4 mmol/L (3.5-5.1)
[2017-08-30 08:17] VITALS: BP 120/71; PULSE 98; TEMP 97.1
[2017-08-30] MEDS: CHOLECALCIFEROL 1,000 UNIT TAB PO SCH (08:17)
[2017-08-30] MEDS: PIOGLITAZONE 30 MG TAB PO SCH (08:17)
[2017-08-30] MEDS: METOPROLOL TARTRATE 25 MG TAB PO SCH (08:18)
[2017-08-30] MEDS: MAGNESIUM OXIDE 400 MG TAB PO SCH (08:18)
[2017-08-30] MEDS: ATORVASTATIN 40 MG TAB PO SCH (08:18)
[2017-08-30] MEDS: FUROSEMIDE 40 MG TAB PO SCH (08:18)
[2017-08-30] MEDS: ASPIRIN 325 MG TAB PO SCH (08:18)
[2017-08-30] MEDS: GLIMEPIRIDE 2 MG TAB PO SCH (08:19)
[2017-08-30] MEDS: LISINOPRIL 20 MG TAB PO SCH (08:23)
[2017-08-30] MEDS: MAGNESIUM SULFATE-D5W PMX 1 GM in DEXTROSE/WATER 1 100ML.BAG IVPB SCH ×2 (08:32→09:51)
[2017-08-30] MEDS: amLODIPine 5 MG TAB PO SCH (11:10)
[2017-08-30 11:30] LABS: Glucose,Whole Blood 186 mg/dL (75-99)
[2017-08-30] MEDS ORDERED: MAGNESIUM SULFATE-D5W PMX 1 GM in DEXTROSE/WATER 1 100ML.BAG IVPB SCH (11:45)
--- NOTE | 2017-08-30 12:37 | P.PN ---
Subjective Progress Note Date: 08/30/17 This is a 71-year-old female with history of diabetes, hypertension, hyperlipidemia, family history of coronary artery disease, history of SVT, most recently had a cardiac catheterization performed in September of last year which revealed normal coronary arteries. She follows with Dr. Benavides in the office. Patient presents to the hospital with symptoms of chest discomfort with associated palpitations, and elevated blood sugars. She also states that she checked her blood pressure at home which was noted to be quite elevated at that time. According to the patient, she is under a considerable amount of stress at home, and has been feeling quite anxious. At the time of my examination this morning she denies any chest discomfort, she just states that she feels cold and feels very anxious. EKG on arrival here shows a sinus tachycardia with Q waves noted in the lateral leads. Chest x-ray did not reveal any acute process. Blood pressure on arrival here 164/70, heart rate 110, 99% on room air. Blood pressure this morning 166/70, heart rate 108-110, 98% on room air. Laboratory data was reviewed, CBC is normal, sodium 138, potassium 3.7, BUN 19, creatinine 1.02. Magnesium level on admission 0.9, 1.7 this morning. Troponins 2 are negative. 08/30/2017 Patient seen and examined this morning, denies any further chest discomfort. Magnesium level I.5 which is being replaced. Echocardiogram with Doppler study was performed which revealed an ejection fraction of 55-60%. Objective - Vital Signs Vital signs: Vital Signs Temp 97.1 F L 08/30/17 08:16 Pulse 98 08/30/17 08:16 Resp 16 08/30/17 08:16 BP 120/71 08/30/17 08:16 Pulse Ox 99 08/30/17 08:16 Intake & Output 08/29/17 08/30/17 08/30/17 18:59 06:59 18:59 Intake Total 740 200 240 Balance 740 200 240 Weight 94 kg Intake: Oral 740 200 240 Other: Voiding Method Toilet Toilet Toilet # Voids 2 1 # Bowel Movements 1 - Exam PHYSICAL EXAMINATION: HEENT: [Head is atraumatic, normocephalic. Pupils equal, round. Neck is supple. There is no elevated jugular venous pressure.] HEART EXAMINATION: [Heart S1, S2 normal. No murmur or gallop heard.] CHEST EXAMINATION:[ Lungs are clear to auscultation and precussion. No chest wall tenderness is noted on palpation or with deep breathing.] ABDOMEN: [ Soft, nontender. Bowel sounds are heard. No organomegaly noted]. EXTREMITIES:[ 2+ peripheral pulses with no evidence of peripheral edema and no calf tenderness noted]. NEUROLOGIC [patient is awake, alert and oriented -3.] . - Labs CBC & Chem 7: 08/30/17 05:48 08/30/17 05:48 Labs: Abnormal Lab Results - Last 24 Hours (Table) 08/29/17 08/29/17 08/29/17 Range/Units 03:08 16:48 21:04 RBC (3.80-5.40) m/uL Hgb (11.4-16.0) gm/dL Hct (34.0-46.0) % BUN (7-17) mg/dL Creatinine (0.52-1.04) mg/dL Glucose (74-99) mg/dL POC Glucose (mg/dL) 119 H 124 H (75-99) mg/dL Hemoglobin A1c 7.4 H (4.0-6.0) % Magnesium (1.6-2.3) mg/dL 08/30/17 08/30/17 08/30/17 Range/Units 05:48 05:48 05:48 RBC 3.65 L (3.80-5.40) m/uL Hgb 11.0 L (11.4-16.0) gm/dL Hct 33.5 L (34.0-46.0) % BUN 20 H (7-17) mg/dL Creatinine 1.10 H (0.52-1.04) mg/dL Glucose 120 H (74-99) mg/dL POC Glucose (mg/dL) (75-99) mg/dL Hemoglobin A1c (4.0-6.0) % Magnesium 1.5 L (1.6-2.3) mg/dL 08/30/17 08/30/17 Range/Units 05:51 11:28 RBC (3.80-5.40) m/uL Hgb (11.4-16.0) gm/dL Hct (34.0-46.0) % BUN (7-17) mg/dL Creatinine (0.52-1.04) mg/dL Glucose (74-99) mg/dL POC Glucose (mg/dL) 120 H 186 H (75-99) mg/dL Hemoglobin A1c (4.0-6.0) % Magnesium (1.6-2.3) mg/dL Assessment and Plan Plan: Assessment and plan #1 chest discomfort with associated palpitations, atypical for acute coronary syndrome. Troponins negative 2, EKG shows sinus tachycardia with lateral Q waves. Patient underwent a cardiac catheterization in September 2016 which revealed normal coronary arteries #2 hypertension #3 hyperlipidemia #4 family history of coronary artery disease #5 diabetes, blood glucose on admission 219 #6 history of SVT #7 hypomagnesemia, mag level I.7 this morning, 0.9 on admission. Plan We will order an echocardiogram with Doppler study, TSH level and d-dimer normal. Patient's pain is very atypical in nature, recent cardiac catheterization revealed normal coronary arteries. Patient may be able to be discharged home from cardiology's perspective. We will make her a follow-up appointment in the office post discharge. DNP note has been reviewed, I agree with a documented findings and plan of care. Patient was seen and examined.
--- NOTE | 2017-08-31 08:18 | DS ---
DISCHARGE SUMMARY DATE OF SERVICE: 08/30/2017 FINAL DIAGNOSES: 1. Chest pain possible musculoskeletal chest pain, myocardial infarction ruled out. 2. Hypomagnesemia. 3. Social stressors. 4. Hypertension. 5. Diabetes type 2. 6. History of cardiac catheterization. Normal coronaries previously. 7. History of cholecystectomy. 8. History of anxiety disorder. 9. Hypomagnesemia. DISCHARGE DISPOSITION: The patient is being discharged in stable condition with guarded prognosis. HISTORY OF PRESENT ILLNESS: This 71-year-old woman with past medical history of multiple medical problems was admitted with chest pain. Myocardial infarction ruled out. Cardiology saw the patient and recommended discharge and outpatient followup. Vital signs are stable. Cardiovascular: S1, S2. Abdomen soft. Nervous system: No focal deficits. DISCHARGE ADVICE AND MEDICATIONS: 1. Discharged diet is cardiac diet. 2. Activity limited until followup. 3. Follow up with Dr. Brown in 2-3 days. 4. Follow up with Dr. Rocha as advised. MEDICATIONS: Medications will be: 1. Xanax 0.25 q8 p.r.n. 2. Norvasc 5 mg p.o. daily. 3. Aspirin 81 mg p.o. daily. 4. Vitamin D3 5000 daily. 5. Lasix 40 mg. 6. Amaryl 1 mg b.i.d. 7. Motrin 800 mg t.i.d. 8. Xalatan 0.05% 1 drop both eyes. 9. Zestril 20 mg p.o. b.i.d. 10.Magnesium oxide 400 mg p.o. b.i.d. 11.Metformin 1000 mg p.o. b.i.d. 12.Lopressor 25 mg p.o. b.i.d. 13.Prilosec 20 mg b.i.d. 14.Actos 30 mg daily. 15.Zocor 20 mg q.h.s. Check magnesium and labs in the outpatient setting. MMODL / IJN: [id number] /
== END 2017-08-30 15:11 | disposition home or self-care (01) | DRG 313 ==
LOC: EC 20:36 → OBSVTOIN 22:54 → 3OBS 22:54 → 6SEL 23:09
PROVIDERS: ADMIT Hospitalist; ATTEND Hospitalist
DX: R07.89 Other chest pain (principal); I25.2 Old myocardial infarction; E11.9 Type 2 diabetes mellitus without complications; E83.42 Hypomagnesemia; E78.5 Hyperlipidemia, unspecified; I10 Essential (primary) hypertension; F41.9 Anxiety disorder, unspecified; R00.2 Palpitations; R00.0 Tachycardia, unspecified; Z79.82 Long term (current) use of aspirin; Z79.899 Other long term (current) drug therapy; Z79.84 Long term (current) use of oral hypoglycemic drugs; Z91.041 Radiographic dye allergy status; Z88.5 Allergy status to narcotic agent; Z91.013 Allergy to seafood; Z90.710 Acquired absence of both cervix and uterus; Z90.49 Acquired absence of other specified parts of digestive tract; Z82.49 Family history of ischemic heart disease and other diseases of the circulatory system
CPT/HCPCS: 36415; 71045; 80048; 80053; 80061; 82150; 82550; 82553; 83036; 83690; 83735; 84443; 84484; 85025; 85379; 85610; 85730; 93005; 93306; 96365; 96366; 99285

== ENCOUNTER → 2017-09-01 | Outpatient (CLI) | payer MEDICARE, OTHER ==
[2017-09-01 09:31] LABS: Basophils % (A) 1 %; Eosinophils # (A) 0.1 k/uL (0-0.7); Eosinophils % (A) 2 %; HCT 36.6 % (34.0-46.0); Lymphocytes # (A) 1.1 k/uL (1.0-4.8); Lymphocytes % (A) 22 %; MCH 29.6 pg (25.0-35.0); MCHC 32.9 g/dL (31.0-37.0); MCV 90.1 fL (80.0-100.0); Mean Platelet Volume 7.7; Monocytes # (A) 0.3 k/uL (0-1.0); Monocytes % (A) 7 %; Neutrophils # (A) 3.4 k/uL (1.3-7.7); Neutrophils % (A) 67 %; Platelet Count 230 k/uL (150-450); RBC 4.06 m/uL (3.80-5.40); RDW 13.4 % (11.5-15.5)
[2017-09-01 10:02] LABS: ALT 26 U/L (9-52); AST 19 U/L (14-36); Alkaline Phosphatase 58 U/L (38-126); Anion Gap 8 mmol/L; Blood Urea Nitrogen 20 mg/dL (7-17); Calcium 9.6 mg/dL (8.4-10.2); Carbon Dioxide 30 mmol/L (22-30); Chloride 101 mmol/L (98-107); Cholesterol 118 mg/dL (<200); Glucose 149 mg/dL (74-99); HDL Cholesterol 54 mg/dL (40-60); LDL Cholesterol,Calculated 39 mg/dL (0-99); Potassium 4.6 mmol/L (3.5-5.1); Sodium 139 mmol/L (137-145); Total Bilirubin 0.5 mg/dL (0.2-1.3); Total Protein 6.5 g/dL (6.3-8.2); Triglycerides 127 mg/dL (<150)
[2017-09-01 17:07] LABS: Hemoglobin A1C 7.5 % (4.0-6.0)
== END | disposition home or self-care (01) ==
LOC: LABWHC1 09:12
PROVIDERS: ATTEND Internal Medicine Endocrinology, Diabetes & Metabolism
DX: E11.65 Type 2 diabetes mellitus with hyperglycemia (principal); R07.9 Chest pain, unspecified
CPT/HCPCS: 36415; 80053; 80061; 82043; 82570; 83036; 85025